=== PATIENT | female | born 1975 | race Caucasian/White ===

== ENCOUNTER → 2023-12-19 09:24 | Outpatient (REF) | payer OTHER, SELFPAY | LOC: RAD 09:24 | PROVIDERS: ATTENDING PHYSICIAN Nurse Practitioner Family; FAMILY PHYSICIAN Physician Assistant Medical | DX: N93.9 Abnormal uterine and vaginal bleeding, unspecified (principal) | CPT/HCPCS: 76830; 76856 ==

== ENCOUNTER 2024-01-20 06:53 | Day surgery (SDC) | payer OTHER, SELFPAY ==
[2024-01-19 10:20] LABS: % Basophils 0.4 % (0-2); % Eosinophils 3.6 % (0-6); % Immature Granulocytes 0.4 % (0-0.5); % Lymphocytes 17.7 % (20.5-51.1); % Monocytes 4.7 % (1.7-9.3); % Neutrophils 73.2 % (42.2-75.2); Absolute Eosinophils 0.3 10^3/uL (0-0.7); Absolute Lymphocytes 1.2 10^3/uL (1.2-3.4); Absolute Monocytes 0.3 10^3/uL (0.1-0.6); Absolute Neutrophils 5.1 10^3/uL (1.4-6.5); Hematocrit 39.6 % (37.0-47.0); Hemoglobin 13.1 g/dL (12.0-16.0); Mean Corp Hgb Conc. 33.1 g/dL (33.0-37.0); Mean Corpuscular Hgb 27.1 pg (27.0-31.0); Mean Corpuscular Volume 81.8 fL (81.0-99.0); Mean Platelet Volume 9.4 fL (7.4-10.4); Nucleated Red Blood Cells % 0 %; Platelet Count 271 10^3/uL (130-400); Red Blood Cell Count 4.84 10^6/uL (4.20-5.40); Red Cell Dist. Width 18.2 % (11.5-14.5)
[2024-01-19 10:46] LABS: Blood Urea Nitrogen 10 mg/dl (7-17); Calcium 9.4 mg/dl (8.4-10.2); Carbon Dioxide 21 mmol/L (22-30); Chloride 104 mmol/L (98-107); Glucose 90 mg/dl (70-99); Potassium 4.3 mmol/L (3.5-5.1); Sodium 135 mmol/L (135-145); eGFR > 60.00
[2024-01-19 11:21] LABS: HCG, Urine Qualitative Screen Negative
[2024-01-20] VITALS (7 sets, daily range): BP systolic 106–138; BP diastolic 73–88; BMI 35.3
[2024-01-20] MEDS: NORMOSOL-R 1000 IV (10:40)
[2024-01-20] MEDS: TYLENOL 1000 MG PO (10:45)
[2024-01-20] MEDS: CELEBREX 200 MG PO (10:49)
== END 2024-01-20 14:33 | disposition home or self-care (01) ==
LOC: SDS 06:53
PROVIDERS: ATTENDING PHYSICIAN Obstetrics & Gynecology; FAMILY PHYSICIAN Physician Assistant Medical
DX: N93.8 Other specified abnormal uterine and vaginal bleeding (principal)
CPT/HCPCS: 58558; 88305; 36415; 80048; 81025; 85025; 86850; 86900; 86901

== ENCOUNTER 2024-06-22 06:53 | Day surgery (SDC) | payer OTHER, SELFPAY ==
[2024-06-16 11:11] LABS: Hematocrit 38.1 % (37.0-47.0); Hemoglobin 11.7 g/dL (12.0-16.0); Mean Corp Hgb Conc. 30.7 g/dL (33.0-37.0); Mean Corpuscular Hgb 25.6 pg (27.0-31.0); Mean Corpuscular Volume 83.4 fL (81.0-99.0); Mean Platelet Volume 9.8 fL (7.4-10.4); Platelet Count 373 10^3/uL (130-400); Red Blood Cell Count 4.57 10^6/uL (4.20-5.40); Red Cell Dist. Width 13.3 % (11.5-14.5); White Blood Cell Count 6.4 10^3/uL (4.8-10.8)
[2024-06-16 11:57] LABS: ALT (SGPT) 17 U/L (0-35); AST (SGOT) 19 U/L (14-36); Albumin 4.6 g/dl (3.5-5.0); Alkaline Phosphatase 52 U/L (38-126); Blood Urea Nitrogen 15 mg/dl (7-17); Calcium 9.6 mg/dl (8.4-10.2); Carbon Dioxide 27 mmol/L (22-30); Chloride 98 mmol/L (98-107); Glucose 92 mg/dl (70-99); Potassium 4.3 mmol/L (3.5-5.1); Sodium 136 mmol/L (135-145); Total Bilirubin 0.4 mg/dl (0.2-1.3); Total Protein 7.2 g/dl (6.3-8.2); eGFR > 60.00
[2024-06-16 14:09] VITALS: BMI 33.2
[2024-06-22] VITALS (16 sets, daily range): BP systolic 110–152; BP diastolic 67–95; BMI 33.2
--- NOTE | 2024-06-22 06:23 | W.CON.GYNONC ---
Chief Complaint
-
Abnormal uterine bleeding
History of Present Illness
This�is�a�46�[id number]�WF�referred�to�me�by�Dr�Defour.�She�also�sees�Dr�Yasmin.�Patient�had�menarche�at�age�15,�she�was�on
oral�contraceptive�pills�for�many�years�and�discontinued�them�approximately�10�years�ago.�Since�then�she�has�had�menorrhagia.
Specifically�over�the�last�couple�of�years�she�has�had�significant�fatigue.�She�noticed�that�her�periods�are�getting�heavier�and�she
even�spots�throughout�the�month�between�her�periods.�She�transcribes�that�her�menses�are�4�to�5�days�in�duration,�she�uses�on
average�8�10�ultra�tampons�and�uses.�Underwear.�She�also�has�been�confirmed�to�be�anemic�and�has�been�getting�iron�infusions
but�has�not�noticed�improvement.�She�continues�to�feel�tired�and�sluggish.�Patient�reports�that�she�has�taken�tranexamic�acid�to minimize�menorrhagia�with�some�relief.�Patient�denies�any�postcoital�bleeding
patient�had�an�ultrasound�of�pelvis,�,�the�uterus�is�normal�in�size�measuring�14.4�x�5.8�x�6�cm,�there�is�no�significant
thickening�of�endometrial�cavity.�Endometrial�thickness�is�1.2�cm,�there�is�echogenic�mass�within�the�endometrial�cavity�3.8�x�0.7�x
0.7�which�may�be�hemorrhagic�product�but�an�endometrial�polyp�cannot�be�completely�excluded.�The�right�ovary�measures�3.2�cm with�a�simple�right�ovarian�cyst�1.8�cm,�left�ovary�measures�3.5�cm�with�2�small�simple�cysts�measuring�1.7�and�1.6�cm.
Patient�was�taken�to�the�operating�room�on�Neligh�15�for�attempted�D&C�hysteroscopy.�Dilation�was�attempted�however�could�not
be�advanced�past�the�cervix.�Cervix�was�noted�to�be�small�and�normal�appearing�in�sitting�high�in�the�pelvis.�Curettings�were�done
but�they�were�not�actually�from�endometrium�and�revealed�squamous�epithelium�and�superficial�fragments�of�endocervical�glands with�no�pathologic�abnormalities.�No�endometrial�tissue�for�evaluation.�Patient�was�hence�recommended�to�see�gynecologic
oncology Patient�did�have�a�colonoscopy�in�[place]�2023�as�per�recommendations�for�a�47�year�old�and�apparently�had�a�small�benign�polyp
that�was�removed�but�it�was�established�that�the�colon�was�not�the�source�of�the�bleeding.�Pathology�confirmed�rectal�polypectomy to�have�a�tubular�adenoma,�distal�rectal�polyp�was�hyperplastic�polyp.
She�underwent an�MRI�which�essentially�excludes�any�abnormality�in�the�endometrial�cavity�endocervical�canal.�None�of�the�features�in�the�MRI
show�any�evidence�of�obvious�malignancy.�There�appears�to�be�adenomyosis�which�is�most�likely�the�etiology�of�her�bleeding.
Fibroids�are�present�although�the�size�of�them�are�small�and�likely�they�are�not�contributing�to�the�bleeding.�She�had�her�MRI�at [facility]�at�[place],�she�had�significant�difficulty�scheduling�this�test
Past�medical�history�significant�for�seasonal�allergies,�migraines,�hiatal�hernia,�has�had�EGD Past�surgical�history�significant�for�2�prior�C�sections,�LASEK�surgery�for�both�eyes,�as�well�as�wisdom�tooth�extraction
Medications�include�phentermine,�TXA,�B12,�montelukast�and�amitriptyline Allergies�include�amoxicillin.
Medications Inside
AMITRIPTYLINE�HCL�50 MG�TAB daily
Botox�100�unit�injection
MONTELUKAST�SOD�10 MG�TABLET daily Family�history�is�significant�for�mother�with�breast�cancer.�She�had�genetic�testing�done�which�was�negative.�Patient�believes�she
personally�has�had�genetic�testing�done�at�[facility]�which�was�negative�but�does�not�have�the�records�with�her Patient�denies�tobacco�drug�or�marijuana�use,�she�does�admit�to�social�alcohol�occasionally
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
Medical History
Allergies
Allergies reflect when allergies were last updated in [facility].
amoxicillin Allergy (Verified 06/16/24 12:54)
Vomiting
Physical Exam
Physical Exam
Pelvic�Examination: External�normal�labia,�urethra,�anus.� Vagina:�Normal�mucosa.� Cervix:�On�initial�speculum�evaluation�I�was�unable�to�see�the�cervix�,�larger�size�speculum�was�utilized,�abdominal�hand�was�used
to�bring�uterus�and�cervix�into�the�pelvis�and�ectocervix�and�cervical�os�was�visualized�which�appeared�to�be�normal.�Normal appearance,�no�discharge.� Uterus:�12�weeks�size,�there�is�no�parametrial�nodularity�or�mass Adnexa:�No�pelvic�mass.�
RVE:�no�masses�or�nodularity General:�Well�developed,�well�nourished�patient.�In�no�acute�distress. Neck:�No�thyromegaly.�No�cervical�lymphadenopathy. Lungs:�Clear�to�auscultation.�Good�air�movement�bilaterally.
Cardiac:�Regular�rate.�Regular�rhythm.�No�murmurs�appreciated. No�masses�or�dimpling.�No�nipple�discharge. Right�Breast: Left�Breast:�No�masses�or�dimpling.�No�nipple�discharge. Abdomen:�Abdomen�is�soft.�Non�tender�to�palpation.�Non�distended.
Extremities:�No�edema. Hematologic/Lymphatic:�No�palpable�lymphadenopathy. Musculoskeletal:�Normal�range�of�motion.�Strength�and�Tone�are�normal. Skin:Non�jaundiced.�No�petechia.�No�purpura.
Neurologic:�Speech�is�fluent.�Normal�gait�and�station.�Cranial�nerves�intact.
Results
-
06/16/24 09:07
06/16/24 09:07
Impression / Plan
-
This�patient�has�enlarged�uterus,�there�is�abnormality�described�on�the�ultrasound�which�requires�additional�investigation�specially in�light�of�menorrhagia�and�resulting�anemia
She�appears�to�have�stenosis�of�the�endocervical�canal,�initial�attempted�D&C�had�failed.�MRI�imaging�suggest�presence�of adenomyosis�and�is�generally�otherwise�reassuring.�I�discussed�with�the�patient�and�range�of�options�of�management�of�abnormal
uterine�bleeding�including�those�that�allow�preservation�of�uterus�and�does�that�require�hysterectomy.�Many�options�that�allow
preservation�of�the�uterus�requires�access�to�the�endometrial�cavity�including�endometrial�ablation�or�IUD�placement.�We�discussed uterine�artery�embolization�but�I�do�not�think�this�would�be�a�good�option�as�she�does�not�have�any�sizable�fibroids.�
My recommendation�is�to�consider�hysterectomy�and�I�explained�my�rationale�for�it.�I�recommend�robotic�assisted�total�laparoscopic
hysterectomy,�bilateral�salpingectomy.�There�will�be�need�for�significant�lysis�of�adhesion�from�anterior�abdominal�wall�and�anterior
cul�de�sac.�But�I�think�it�is�the�best�option�of�management�for�the�patient.�Given�her�premenopausal�status�ovaries�can�be�preserved �I�discussed�risks�of�surgery�including�infection,
bleeding�injury�to�adjacent�organs�DVT�pulmonary�embolism�and�cardiovascular�complications.�We�reviewed�the�recovery�process
from�the�surgery.�I�do�not�think�given�the�MRI�findings�we�need�to�perform�sentinel�lymph�node�identification�at�the�time�of�surgery. The�patient�is�agreeable�and�informed�consent�was�obtained
[2024-06-22] MEDS: CELEBREX 200 MG PO (11:42)
[2024-06-22] MEDS: NEURONTIN 300 MG PO (11:42)
[2024-06-22] MEDS: TYLENOL 1000 MG PO (11:42)
[2024-06-22] MEDS: HEPARIN 5000 UNITS SC (11:43)
[2024-06-22] MEDS: NORMOSOL-R/PLASMALYTE-A 1000 IV (12:47)
--- NOTE | 2024-06-22 16:04 | OR.RPT ---
Operative Report
Operative Report
Date of procedure June 22, 2024
Preoperative diagnosis: Abnormal uterine bleeding, leiomyoma, adenomyosis, unable to sample endometrial cavity
Postoperative diagnosis: Same plus endometrial polyp and secretory endometrium
Procedure: Robotic assisted total laparoscopic hysterectomy, bilateral salpingectomy, extensive adhesiolysis involving right and left pelvis and anterior cul-de-sac, pelvic washings, tap block
Surgeon: Justin Hauser
Assist:Susan Edmondson PA-C, Kyle GONZALEZ
Anesthesia: General, endotracheal intubation
Complication: None
Estimated blood loss: 50 cc
Specimens: Pelvic washing, uterus and cervix, right and left tubes, anterior abdominal wall adhesion
Procedure in detail this patient was taken to the operating room for definitive management of abnormal uterine bleeding. D&C had been attempted but the uterine cavity could not be accessed. MRI findings were consistent with leiomyoma and
adenomyosis and did not indicate obvious concern for malignancy. Patient was brought to the operating room placed in supine position, general anesthesia was administered she was intubated without any difficulty. Head and shoulders were properly
supported OG tube was placed eyes were protected she was placed in lithotomy position using yellowfin stirrups and prepped on the abdomen perineum and vagina. Arms were wrapped with foam and placed along the site protected across all joints. The
patient was draped. Timeout procedure was carried out, she received Ancef and Flagyl prophylactically and had received heparin 5000 units subcutaneous injection prior to that. Kruger catheter was placed under sterile conditions for drainage of
bladder. Speculum was placed in the vagina. Cervix was difficult to identify as it was under symphysis pubis secondary to adhesions of the uterus to the anterior abdominal wall it was eventually identified the cervical canal was dilated uterine
manipulator with 3.0 cm WERNER ring was introduced in the vagina around the cervix and vaginal cuff occluder was insufflated. Attention was turned abdominally Veress needle was placed just below the left subcostal margin into the peritoneal cavity and
insufflation with CO2 gas was performed up to pressure of 15 mmHg. Next 8 mm XL trocars were introduced in left upper quadrant mid abdomen right upper quadrant and then right and left lateral abdomen. Under direct visualization tap block was
performed injecting ropivacaine and Decadron mixture 2 fingerbreadths below the lateral aspect of the right and left subcostal margin and right and left mid abdominal wall following this patient was placed in Trendelenburg 28 degrees, upper abdomen
was examined right and left lobes of the liver and diaphragms are normal. It appears that the omentum is adherent to the anterior abdominal wall and extends all the way down to symphysis pubis adjacent to the uterus and the uterus is adherent
densely and scarred to the anterior abdominal wall just adjacent to it on the left side. We went ahead and docked Robotic system right and left anterior and posterior broad ligament peritoneum was opened retroperitoneum was explored IP ligament and
ureters were identified. We utilized monopolar and bipolar cautery to transect the mesosalpinx bilaterally. Next right and left fallopian tubes were detached from the uterus and submitted to pathology. Washings were collected from posterior
cul-de-sac. Utero-ovarian attachment to the uterus were sealed and divided. Over the next 45 minutes adhesions of the omentum to the anterior abdominal wall into the uterus were taken down until it was completely free next adhesions of the uterus
to the anterior abdominal wall were taken down until we approached the vicinity of the bladder. The bladder was filled on multiple occasions to identify its borders. We identified vesicouterine space lower around the level of the cervix and
gradually took down the scarred and fibrotic scar tissue between anterior abdominal wall uterus and bladder until we could completely open the anterior cul-de-sac. The bladder was advanced below the level of cervix. Both uterine arteries were
skeletonized sealed and divided any residual parametrial was sealed and divided uterosacral ligaments were sealed and divided circumferential incision was made on WERNER ring until the specimen was completely detached. The uterus was from
uterine manipulator and placed in an endoscopic bag which had been introduced through the vagina and then extracted vaginally. We backfilled the bladder and there was no defects in the wall and there was no cystotomy present. There was however
some residual myometrium and scarring to the left dome of the bladder this was carefully taken off and submitted as anterior abdominal wall adhesion and likely will be myometrium residual from anterior aspect of the uterus. Vaginal cuff was closed
with 0 Vicryl suture ligature in a [id number] fashion at both apices incorporating uterosacral ligaments. V-Loc suture was used in a bidirectional fashion to close the cuff starting from right to the left side and back to the right side. All
pedicles were examined and they were hemostatic pelvis was irrigated copiously and there was no evidence of bleeding. We went ahead and examined the ovaries and they were hemostatic. All instruments were removed normal robotic system was undocked,
ports were closed with 4-0 Monocryl in a subcuticular fashion. Patient was awakened extubated and returned back to recovery room after removal of her Kruger and endotracheal tube and stable awake condition counts of laps instruments and needle was
correct x 2. I was present and scrubbed for entire procedure as dictated above
Frozen section of the uterus was performed, endometrium has secretory endometrium, there is a long thin polyp otherwise present which appears benign at this time. There is no obvious evidence of malignancy and hence no additional staging procedures
were performed.
Disposition: To PACU stable awake and extubated
[2024-06-22] MEDS: ZOFRAN 4 MG IV (16:26)
[2024-06-22] MEDS: DEMEROL 12.5 MG IV (16:34)
[2024-06-22] MEDS: TORADOL 15 MG IV (17:17)
[2024-06-22] MEDS: COMPAZINE 5 MG IV (18:26)
--- NOTE | 2024-06-22 18:32 | PTCARENOTE ---
pt w/low 02 sats at times on RA, drops as low as 55%, comes back to normal w/o intervention. Dr Mchugh notified, will give pt more time in pacu.
[2024-06-22] MEDS: TYLENOL 650 MG PO (19:18)
== END 2024-06-22 19:29 | disposition home or self-care (01) ==
LOC: SDS 06:53
PROVIDERS: ATTENDING PHYSICIAN Obstetrics & Gynecology Gynecologic Oncology; FAMILY PHYSICIAN Family Medicine
DX: D25.9 Leiomyoma of uterus, unspecified (principal); N80.03 Adenomyosis of the uterus; N84.0 Polyp of corpus uteri; N85.02 Endometrial intraepithelial neoplasia [EIN]; K66.0 Peritoneal adhesions (postprocedural) (postinfection); N93.9 Abnormal uterine and vaginal bleeding, unspecified
CPT/HCPCS: 58571; 88305; 88307; 88332; 36415; 80053; 85027; 86850; 86900; 86901; 88112; 88331; 93005